=== PATIENT | female | born 1995 | race Hispanic/Latino ===

== ENCOUNTER 2017-02-26 08:37 | Observation (INO) | payer BC, OTHER ==
[2017-02-26 08:49] VITALS: BMI 25.1
[2017-02-26 08:50] VITALS: RESP 18
[2017-02-26 09:41] LABS: SQUAMOUS EPITHIAL 1 /hpf (0-5); URINE BILIRUBIN NEGATIVE (NEGATIVE); URINE BLOOD NEGATIVE (NEGATIVE); URINE CLARITY CLEAR (Clear); URINE COLOR YELLOW (YELLOW); URINE GLUCOSE (UA) NEG (Normal); URINE LEUKOCYTE ESTERASE TRACE Leu/uL (Negative); URINE NITRATE NEGATIVE (NEGATIVE); URINE PROTEIN NEGATIVE (NEGATIVE); URINE UROBILINOGEN 0.2-1.0 mg/dL (0.2-1.0)
--- NOTE | 2017-02-26 09:51 | ED PDOC ---
HPI: Back Chief Complaint (Provider): back pain History Per: Patient History/Exam Limitations: no limitations Onset/Duration Of Symptoms: Days (1) Current Symptoms Are (Timing): Still Present Quality Of Discomfort: Pressure, "Pain" (bilateral flank) Pain Scale Rating Of: 8 Associated Symptoms: None Exacerbating Factor(s): Movement Additional Complaint(s): 21 year old female presents complaining of 'flu like symptoms and back pain' that began last night. She endorses tactile fever, sore throat, chills and night sweats with associated back pressure/pain that is worsening. Back pain is 8/10 in severity and is non radiating. Pt denies dysuria, hematuria, pyuria. She notes these symptoms are the same, but milder than when she had pyelonephritis two years ago. She states last coitus was two days ago and was unprotected, however she is taking OCPs for contraception. She was also at the pool over the weekend. She denies sick contacts. PMH: ESBL+ pyelonephritis 2014, melanoma Medications: Junel Allergies NKDA Social : social EtOH use, denies tobacco, illicit drug use. Surgical hx: melanoma left leg removed PMD: none <Rosemarie Coello - Last Filed: 02/26/17 11:40> <Debbi Linares - Last Filed: 02/26/17 14:00> Time Seen by Provider: 02/26/17 09:12 Chief Complaint (Nursing): Back Pain Past Medical History Vital Signs: Last Vital Signs Temp 98.6 F 02/26/17 08:49 Pulse 97 H 02/26/17 08:49 Resp 18 02/26/17 08:49 BP 133/82 02/26/17 08:49 Pulse Ox 98 02/26/17 08:49 - Medical History PMH: No Chronic Diseases Denies: Alzheimer's Disease, Anemia, Anxiety, Arthritis, Asthma, Atrial Fibrillation, Bipolar Disorder, Bronchitis, CAD, Cardia Arrhythmia, CHF, COPD, Crohn's Disease, Dementia, Depression, Diverticulitis, Emphysema, Fractures, Gastritis, Gall Bladder Disease, HIV, HTN, Hypercholesterolemia, Hyperthyroidism , Hypothyroidism, Kidney Stones, Migraine, Mitral Valve Prolapse, Multiple Sclerosis, Osteoporosis, Pancreatitis, Paranoia, Parkinson's Disease, Peripheral Edema, Pneumonia, Post Traumatic Stress Disorder, Pulmonary Embolism , Rheumatoid Arthritis, Schizophrenia, Seizures, Sickle Cell Disease, Sexually Transmitted Disease, Sleep Apnea, TIA - Surgical History Surgical History: Denies: Appendectomy, CABG, Carotid Endarterectomy, Cholecystectomy, Coronary Stent, Pacemaker, Tonsillectomy - Family History Family History: States: Unknown Family Hx - Living Arrangements Living Arrangements: With Friends/Others - Social History Current smoker - smoking cessation education provided: No <Rosemarie Coello - Last Filed: 02/26/17 11:40> Vital Signs: Last Vital Signs Temp 98.6 F 02/26/17 08:49 Pulse 97 H 02/26/17 08:49 Resp 18 02/26/17 08:49 BP 133/82 02/26/17 08:49 Pulse Ox 98 02/26/17 11:41 - Medical History Other PMH: Pyelonephritis <Debbi Linares - Last Filed: 02/26/17 14:00> - Home Medications Home Medications: Ambulatory Orders Medication Instructions Recorded Lisdexamfetamine Dimesylate 40 mg PO DAILY 03/17/15 [Vyvanse] Norethindrone AC-Eth Estradiol 1 tab PO DAILY 03/17/15 [Junel 1 mg-20 Mcg Tablet] Ertapenem [Invanz] 1 gm IV DAILY #0 pds 03/26/15 Ibuprofen [Motrin Tab] 400 mg PO Q6 PRN #0 tab 03/26/15 Nitrofurantoin Macrocrystals 100 mg PO BID #14 cap 02/26/17 [Macrobid] - Allergies Allergies/Adverse Reactions: Allergies Allergy/AdvReac Type Severity Reaction Status Date / Time No Known Allergies Allergy Verified 02/17/15 12:15 Review of Systems Constitutional: Positive for: Fever, Chills, Sweats Eyes: Negative for: Vision Change ENT: Positive for: Throat Pain. Negative for: Ear Pain, Nose Discharge, Nose Congestion, Throat Swelling Cardiovascular: Negative for: Chest Pain, Palpitations Respiratory: Negative for: Cough, Shortness of Breath Gastrointestinal: Positive for: Nausea (this morning), Abdominal Pain (flank pain). Negative for: Vomiting, Diarrhea, Constipation Genitourinary Female: Negative for: Dysuria, Frequency, Hematuria Musculoskeletal: Positive for: Back Pain (flank pain) Skin: Negative for: Rash, Jaundice, Bruising Neurological: Negative for: Weakness, Numbness, Altered Mental Status <Rosemarie Coello - Last Filed: 02/26/17 11:40> ROS Statement: Except As Marked, All Systems Reviewed And Found Negative Gastrointestinal: Positive for: Other (right-sided flank pain) <Debbi Linares - Last Filed: 02/26/17 14:00> Physical Exam - Reviewed Vital Signs Reviewed: Yes (HR 97) - Physical Exam Appears: Positive for: Uncomfortable (secondary to pain but not in acute distress) Skin: Positive for: Warm, Dry. Negative for: Diaphoresis, Pallor Eye Exam: Positive for: Normal appearance ENT: Positive for: Pharyngeal Erythema (mild), Tonsillar Swelling (left tonsil 2 +, right tonsil not visualized). Negative for: Nasal Congestion, Tonsillar Exudate Neck: Positive for: Painless ROM Cardiovascular/Chest: Positive for: Regular Rate, Rhythm (S1S2). Negative for: Edema, Gallop, Murmur Respiratory: Positive for: Normal Breath Sounds. Negative for: Accessory Muscle Use, Rales, Rhonchi, Wheezing, Respiratory Distress Gastrointestinal/Abdominal: Positive for: Soft, Tenderness (right and left lumbar). Negative for: Organomegaly, Distended, Guarding, Rebound, Asicites Back: Positive for: Normal Inspection, L CVA Tenderness, R CVA Tenderness Rectal: Positive for: Deferred Extremity: Positive for: Normal ROM. Negative for: Tenderness, Pedal Edema Neurologic/Psych: Positive for: Alert, it assistant II-XII, Oriented, Mood/Affect ( appropriate) <Rosemarie Coello - Last Filed: 02/26/17 11:40> - Laboratory Results Result Diagrams: 02/26/17 10:13 02/26/17 10:13 Urine POC: Negative Urine dip results: Positive for: Leukocyte Esterase (trace). Negative for: Blood, Nitrate, Ketones, Glucose, Bilirubin, Protein - ECG O2 Sat by Pulse Oximetry: 98 - Progress ED Course And Treament: 21 year old female with likely post coital UTI, now with early acute pyelonephritis and likely viral URI -CBC -BMP -UA -Urine C&S -Urine test -Tylenol for pain -reassess Case d/w Dr. Linares, who agrees with the assessment and plan delineated above. 10:55: labs reviewed, patient reassessed CBC: leukocytosis- 15.2 BMP: hyperkalemia: 5.3, moderately hemolyzed UA: trace leukocyte esterase Pain not improved with tylenol. Father is bedside. Toradol 15mg IVP CT abd pelvis admit for observation. <ModeRosemarie - Last Filed: 02/26/17 11:40> - Laboratory Results Result Diagrams: 02/26/17 10:13 02/26/17 10:13 - ECG O2 Sat by Pulse Oximetry: 98 (RA) Pulse Ox Interpretation: Normal <Debbi Linares - Last Filed: 02/26/17 14:00> Medical Decision Making Medical Decision Making: Time: 09:05 Initial Impression: Initial Plan: --Patient to be admitted to ED-Observation for abdominal pain Scribe Attestation: Documented by Deneen Hewitt, acting as a scribe for Debbi Linares MD Provider Scribe Attestation: All medical record entries made by the Scribe were at my direction and personally dictated by me. I have reviewed the chart and agree that the record accurately reflects my personal performance of the history, physical exam, medical decision making, and the department course for this patient. I have also personally directed, reviewed, and agree with the discharge instructions and disposition. <Debbi Linares - Last Filed: 02/26/17 14:00> ED OBSERVATION Date of observation admission: 02/26/17 Time of observation admission: 09:05 - Observation admission statement Patient is being placed in observation because:: Abdominal pain - Goals of Observation Goals of observation are:: Determine cause and improve symptoms - Progress Note Progress Note: Time: 9:28 --Urinalysis --Blood work --Pending CT Abdomen/Pelvis Time: 12:24 CT Abdomen/Pelvis: FINDINGS: There is limited evaluation of the solid organs without the administration of IV contrast. LOWER THORAX: No visible consolidation, pleural effusion, or pneumothorax. LIVER: Unremarkable unenhanced appearance. GALLBLADDER AND BILE DUCTS: Unremarkable unenhanced appearance. PANCREAS: Unremarkable unenhanced appearance. SPLEEN: Unremarkable unenhanced appearance. ADRENALS: Unremarkable unenhanced appearance. KIDNEYS AND URETERS: No hydronephrosis or obstructing renal calculus. BLADDER: The urinary bladder appears unremarkable. REPRODUCTIVE: Uterus is present. APPENDIX: The appendix appears within normal limits of caliber. No secondary signs of acute appendicitis. BOWEL: The stomach is nondistended. Lack of oral contrast limits evaluation for bowel pathology. The bowel loops appear within normal limits of caliber without evidence of intestinal obstruction. Moderate constipation. PERITONEUM: No significant free fluid. No definite free air. LYMPH NODES: No bulky lymphadenopathy identified. VASCULATURE: No aortic aneurysm. BONES: Nonspecific osseous demineralization, sacrum. OTHER FINDINGS: None. IMPRESSION: Moderate constipation. Nonspecific osseous demineralization, sacrum. Time: 13:53 --Labs show small leukocytes present in urine --Macrobid 100 mg PO BID for 14 days --Patient aware of CT report --oxycodone 1 tab PO Clinical Impression: Constipation, UTI Upon provider evaluation patient is medically stable, and requires no further treatment in the ED at this time. Patient will be discharged with Rx for Macrobid. Counseling was provided and all questions were answered regarding diagnosis and need for follow up with PMD in 1-2 days. There is agreement to discharge plan. Return if symptoms persist or worsen. <Debbi Linares Y - Last Filed: 02/26/17 14:00> Disposition <Rosemarie Coello - Last Filed: 02/26/17 11:40> <Debbi Linares - Last Filed: 02/26/17 14:00> - Clinical Impression Clinical Impression: Constipation, UTI (urinary tract infection) - Disposition Condition: IMPROVED
[2017-02-26 10:18] LABS: BASO % 0.2 % (0.0-2.0); EOS % 0.1 % (0.0-4.0); HEMOGLOBIN 14.3 g/dL (12.0-16.0); LYMPH # 1.5 K/uL (1.0-4.3); LYMPH % 9.9 % (20.0-40.0); MEAN CORPUSCULAR HEMOGLOBIN 32.5 pg (27.0-31.0); MEAN CORPUSCULAR HGB CONC 34.2 g/dL (33.0-37.0); MEAN PLATELET VOLUME 9.4 fl (7.2-11.7); MONO % 6.3 % (0.0-10.0); NEUT # 12.7 K/uL (1.8-7.0); NEUT % 83.5 % (50.0-75.0); NRBC % 0.1 % (0.0-0.0); PLATELET COUNT 183 K/uL (130-400); RED CELL DISTRIBUTION WIDTH 13.1 % (11.5-14.5); WHITE BLOOD COUNT 15.2 K/uL (4.8-10.8)
[2017-02-26 10:34] LABS: BLOOD UREA NITROGEN 14 mg/dl (7-17); CALCIUM 9.4 mg/dL (8.4-10.2); GFR AFRICAN-AMERICAN > 60; GFR NON-AFRICAN AMERICAN > 60
[2017-02-26 11:41] LABS: LYMPHOCYTE 12 % (20-50); MONOCYTE 7 % (0-10); NEUTROPHIL 81 % (42-75); PLATELET ESTIMATE NORMAL (NORMAL); TOTAL CELLS COUNTED 100
--- NOTE | 2017-02-26 13:23 | CT ---
PROCEDURE: CT Abdomen and Pelvis without Oral or IV contrast. HISTORY: abd pain COMPARISON: Renal ultrasound performed 03/26/15, CT of the abdomen and pelvis with contrast performed 03/18/15 TECHNIQUE: Contiguous axial images of the abdomen and pelvis. No oral or IV contrast administered. Coronal and Sagittal reformats generated. Radiation dose: Total exam DLP = 833.89 mGy-cm. This CT exam was performed using one or more of the following dose reduction techniques: Automated exposure control, adjustment of the mA and/or kV according to patient size, and/or use of iterative reconstruction technique. FINDINGS: There is limited evaluation of the solid organs without the administration of IV contrast. LOWER THORAX: No visible consolidation, pleural effusion, or pneumothorax. LIVER: Unremarkable unenhanced appearance. GALLBLADDER AND BILE DUCTS: Unremarkable unenhanced appearance. PANCREAS: Unremarkable unenhanced appearance. SPLEEN: Unremarkable unenhanced appearance. ADRENALS: Unremarkable unenhanced appearance. KIDNEYS AND URETERS: No hydronephrosis or obstructing renal calculus. BLADDER: The urinary bladder appears unremarkable. REPRODUCTIVE: Uterus is present. APPENDIX: The appendix appears within normal limits of caliber. No secondary signs of acute appendicitis. BOWEL: The stomach is nondistended. Lack of oral contrast limits evaluation for bowel pathology. The bowel loops appear within normal limits of caliber without evidence of intestinal obstruction. Moderate constipation. PERITONEUM: No significant free fluid. No definite free air. LYMPH NODES: No bulky lymphadenopathy identified. VASCULATURE: No aortic aneurysm. BONES: Nonspecific osseous demineralization, sacrum. OTHER FINDINGS: None. IMPRESSION: Moderate constipation. Nonspecific osseous demineralization, sacrum.
[2017-02-26] MEDS ORDERED: Oxycodone/Acetaminophen 5/325 mg Tab PO ONE (13:53)
[2017-02-26 13:56] VITALS: BP 125/67; PULSE 70; TEMP 98.5
[2017-02-26 13:58] VITALS: O2SAT 98
[2017-02-26] MEDS ORDERED: cefTRIAXone (Rocephin) 1 gm Inj ONE (22:32)
== END 2017-02-26 13:38 | disposition home or self-care (01) ==
LOC: H.ER 08:37 → H.EROBSV 11:05
PROVIDERS: ADMIT Emergency Medicine; ATTEND Emergency Medicine
DX: K59.00 Constipation, unspecified (principal); N39.0 Urinary tract infection, site not specified; Z85.820 Personal history of malignant melanoma of skin
CPT/HCPCS: 74176; 80048; 81003; 81025; 85025; 87086; 96374; 99283; G0378; J1885

== ENCOUNTER 2017-03-13 19:49 | Inpatient (IN) | payer BC ==
[2017-03-13 19:49] VITALS: BMI 25.1
[2017-03-13] MEDS ORDERED: Morphine 4 MG/ML VIAL IVP ONE (20:50)
[2017-03-13] MEDS ORDERED: Sodium Chloride 0.9% 1,000 ML IV STA (20:51)
--- NOTE | 2017-03-13 20:51 | ED PDOC ---
HPI: Back Time Seen by Provider: 03/13/17 20:40 Chief Complaint (Nursing): Back Pain Chief Complaint (Provider): Back Pain History Per: Patient History/Exam Limitations: no limitations Onset/Duration Of Symptoms: Days Current Symptoms Are (Timing): Still Present Additional Complaint(s): Falguni Diaz is a 21 year old female with a history of pyelonephritis that presents to the ED with a chief complaint of pain in her right flank. Patient was admitted on 02/26/17 for pyelonephritis, and recently finished her antibiotics. Since the finishing of her antibiotics, patient states that she has noticed a return of pain in her right flank and fever. She denies any vomiting. Of Note: Patient also had history of admission in 2014 for pyelonephritis. Past Medical History Reviewed: Historical Data, Nursing Documentation, Vital Signs Vital Signs: Last Vital Signs Temp 100.1 F H 03/13/17 20:06 Pulse 109 H 03/13/17 20:06 Resp 18 03/13/17 20:06 BP 134/74 03/13/17 20:06 Pulse Ox 99 03/13/17 20:06 - Medical History PMH: Chronic Kidney Disease Denies: Alzheimer's Disease, Anemia, Anxiety, Arthritis, Asthma, Atrial Fibrillation, Bipolar Disorder, Bronchitis, CAD, Cardia Arrhythmia, CHF, COPD, Crohn's Disease, Dementia, Depression, Diverticulitis, Emphysema, Fractures, Gastritis, Gall Bladder Disease, HIV, HTN, Hypercholesterolemia, Hyperthyroidism , Hypothyroidism, Kidney Stones, Migraine, Mitral Valve Prolapse, Multiple Sclerosis, Osteoporosis, Pancreatitis, Paranoia, Parkinson's Disease, Peripheral Edema, Pneumonia, Post Traumatic Stress Disorder, Pulmonary Embolism , Rheumatoid Arthritis, Schizophrenia, Seizures, Sickle Cell Disease, Sexually Transmitted Disease, Sleep Apnea, TIA - Surgical History Surgical History: Denies: Appendectomy, CABG, Carotid Endarterectomy, Cholecystectomy, Coronary Stent, Pacemaker, Tonsillectomy - Family History Family History: States: Unknown Family Hx - Home Medications Home Medications: Ambulatory Orders Medication Instructions Recorded Nitrofurantoin Monohyd/M-Cryst 1 cap PO BID 02/26/17 [Nitrofurantoin [place]-Mcr 100 mg] Norethindrone AC-Eth Estradiol 1 tab PO DAILY 02/26/17 [Junel 1 mg-20 Mcg Tablet] - Allergies Allergies/Adverse Reactions: Allergies Allergy/AdvReac Type Severity Reaction Status Date / Time No Known Allergies Allergy Verified 02/17/15 12:15 Review of Systems Constitutional: Positive for: Fever Musculoskeletal: Positive for: Back Pain (right flank pain) Physical Exam - Reviewed Nursing Documentation Reviewed: Yes Vital Signs Reviewed: Yes - Physical Exam Appears: Positive for: Non-toxic. Negative for: No Acute Distress (Pain is in moderate painful distress) Head Exam: Positive for: ATRAUMATIC, NORMOCEPHALIC Skin: Positive for: Normal Color, Warm Cardiovascular/Chest: Positive for: Regular Rate, Rhythm. Negative for: Murmur Respiratory: Positive for: Normal Breath Sounds. Negative for: Wheezing Gastrointestinal/Abdominal: Positive for: Tenderness (epigastric and RUQ pain). Negative for: Normal Exam Back: Positive for: R CVA Tenderness. Negative for: Normal Inspection Neurologic/Psych: Positive for: Alert, Oriented. Negative for: Motor/Sensory Deficits - Laboratory Results Result Diagrams: 03/13/17 21:26 03/13/17 21:26 Urine POC: Negative Urine dip results: Positive for: Leukocyte Esterase. Negative for: Blood, Nitrate, Ketones, Glucose, Bilirubin, Protein - ECG O2 Sat by Pulse Oximetry: 99 (RA) Pulse Ox Interpretation: Normal - Progress ED Course And Treament: MORPHINE 4MG IV X 1 DOSE ZOFRAN 4 MG IV X 1 DOSE NS 1 LITER 500 ML PER HOUR BC X2 LACTATE WNL WBC 21 UDIP: POS LEUK/NEG NITRATE/NEG RBC ROCEPHIN 1 GM IV X 1 DOSE ORDERED Medical Decision Making Medical Decision Making: Impression: Possible Pyelonephritis Plan: * VBG * CMP * CBC * Urine Dip * Urine * Urinalysis * Urine Culture * Blood Culture * Morphine 4 mg IM * Zofran 4 mg IM * Sodium Chloride 1000 mL at 500 mLs/hr * US Abdomen * US Renal * Reevaluation Old charts reviewed, patient received CT Scan on 02/26/17 with finding of moderate constipation. Urine culture on 02/26/17 showed gram positive cocci <10, 000. Scribe Attestation: Documented by Emily Dave, acting as a scribe for Puja Kaur PA-C. Provider Scribe Attestation: All medical record entries made by the Scribe were at my direction and personally dictated by me. I have reviewed the chart and agree that the record accurately reflects my personal performance of the history, physical exam, medical decision making, and the department course for this patient. I have also personally directed, reviewed, and agree with the discharge instructions and disposition. ED OBSERVATION Date of observation admission: 03/13/17 Time of observation admission: 23:37 - Observation admission statement Patient is being placed in observation because:: ABDOMINAL PAIN - Goals of Observation Goals of observation are:: FEVER - Progress Note Progress Note: 03/13/17 23:38 PATIENT REQUIRED 2 DOSES OF MORPHINE 4 MG IV IN ED. Disposition - Clinical Impression Clinical Impression: Abdominal pain, Fever - Patient ED Disposition Is Patient to be Admitted: Transfer of Care - Disposition Disposition: Transfer of Care Disposition Time: 00:00 Condition: FAIR Patient Signed Over To: Gemini Shi Handoff Comments: ABDOMINAL CT PENDING - Pt Status Changed To: Hospital Disposition Of: Inpatient - Admit Certification Admit to Inpatient:: After my assessment, the patient will require hospitalization for at least two midnights. This is because of the severity of symptoms shown, intensity of services needed, and/or the medical risk in this patient being treated as an outpatient.
[2017-03-13] MEDS ORDERED: Morphine 4 MG/ML VIAL ONE ×2 (21:05→23:32)
[2017-03-13 21:30] LABS: BASO # 0.1 K/uL (0.0-0.2); BASO % 0.4 % (0.0-2.0); EOS # 0.3 K/uL (0.0-0.7); EOS % 1.6 % (0.0-4.0); HEMOGLOBIN 13.1 g/dL (12.0-16.0); LYMPH # 1.2 K/uL (1.0-4.3); LYMPH % 5.7 % (20.0-40.0); MEAN CELL VOLUME 95.6 fl (81.0-99.0); MEAN CORPUSCULAR HEMOGLOBIN 31.5 pg (27.0-31.0); MEAN CORPUSCULAR HGB CONC 32.9 g/dL (33.0-37.0); MEAN PLATELET VOLUME 8.9 fl (7.2-11.7); MONO # 0.7 K/uL (0.0-0.8); MONO % 3.4 % (0.0-10.0); NEUT % 88.9 % (50.0-75.0); PLATELET COUNT 194 K/uL (130-400); RBC 4.16 Mil/uL (3.80-5.20); RED CELL DISTRIBUTION WIDTH 13.3 % (11.5-14.5); WHITE BLOOD COUNT 21.4 K/uL (4.8-10.8)
[2017-03-13 21:33] LABS: VENOUS BLOOD GAS BASE EXCESS 0.8 mmol/L (0.0-2.0); VENOUS BLOOD GAS PCO2 39 mmHg (40-60); VENOUS BLOOD GAS PO2 21 mm/Hg (30-55); VENOUS BLOOD PH 7.42 (7.32-7.43)
[2017-03-13] MEDS ORDERED: cefTRIAXone (Rocephin) 1 gm Inj IVPB ONE (21:34)
[2017-03-13 21:42] LABS: ALB/GLOB RATIO 1.2 (1.0-2.1); ALBUMIN 4.2 g/dL (3.5-5.0); ALT/SGPT 34 U/L (9-52); AST/SGOT 23 U/L (14-36); BLOOD UREA NITROGEN 15 mg/dl (7-17); CALCIUM 9.5 mg/dL (8.4-10.2); GFR AFRICAN-AMERICAN > 60; GFR NON-AFRICAN AMERICAN > 60; LIPASE 115 U/L (23-300)
[2017-03-13 22:40] LABS: ANISOCYTOSIS SLIGHT; BANDS 3 % (0-2); EOSINOPHIL 1 % (0-7); HYPOCHROMIC SLIGHT; LYMPHOCYTE 6 % (20-50); MONOCYTE 3 % (0-10); NEUTROPHIL 87 % (42-75); PLATELET ESTIMATE NORMAL (NORMAL); TOTAL CELLS COUNTED 100
[2017-03-13 22:41] LABS: SQUAMOUS EPITHIAL 2 /hpf (0-5); URINE BILIRUBIN NEGATIVE (NEGATIVE); URINE BLOOD NEGATIVE (NEGATIVE); URINE CLARITY CLEAR (Clear); URINE COLOR STRAW (YELLOW); URINE GLUCOSE (UA) NEG (Normal); URINE LEUKOCYTE ESTERASE MOD Leu/uL (Negative); URINE NITRATE NEGATIVE (NEGATIVE); URINE PROTEIN NEGATIVE (NEGATIVE); URINE UROBILINOGEN 0.2-1.0 mg/dL (0.2-1.0)
[2017-03-13 22:41] LABS: STOMATOCYTES SLIGHT
[2017-03-13] MEDS ORDERED: Morphine 4 MG/ML VIAL IVP STA (23:02)
--- NOTE | 2017-03-13 23:32 | US ---
EXAM: US Abdomen Complete CLINICAL HISTORY: 21 years old, female; Pain; Abdominal pain; Epigastric; Additional info: Ruq abd pain TECHNIQUE: Real-time ultrasound of the abdomen (complete) with image documentation. COMPARISON: No relevant prior studies available. FINDINGS: Liver: Normal echogenicity. No mass. No intrahepatic bile duct dilatation. Gallbladder: No gallstones. No wall thickening. No pericholecystic fluid. No sonographic Quintanilla's sign. Common bile duct: No dilatation. No stones. Pancreas: Unremarkable as visualized. Kidneys: Normal echogenicity. No hydronephrosis. Spleen: No splenomegaly. Aorta: Unremarkable. No aneurysm. Inferior vena cava: Unremarkable. Free fluid: No significant free fluid. IMPRESSION: 1.No acute findings. 2.Non-acute findings are described above.
[2017-03-13] MEDS ORDERED: Iohexol 240 (50 ml) PO STA (23:33)
[2017-03-13] MEDS ORDERED: Iohexol 240 (50 ml) ONE (23:53)
[2017-03-14] MEDS ORDERED: Sodium Chloride 0.9% 50 ML IV ONE (02:06)
[2017-03-14] MEDS ORDERED: Iohexol 300 100 ML IJ ONE (02:06)
--- NOTE | 2017-03-14 02:44 | ED PDOC ---
"- Laboratory Results Result Diagrams: 03/13/17 21:26 03/13/17 21:26 Urine POC: Negative - ECG O2 Sat by Pulse Oximetry: 99 (RA) - Progress ED Course And Treament: ct: ABDOMEN: Liver: Unremarkable. No mass. Gallbladder and bile ducts: No calcified stones. No ductal dilation. Pancreas: No ductal dilation. No mass. Spleen: No splenomegaly. Adrenals: No mass. Kidneys and ureters: Mild scarring RIGHT kidney. Few minimal peripheral ill- defined areas of decreased attenuation vs scarring within RIGHT kidney. No hydronephrosis. Stomach and bowel: No definite mural thickening. No obstruction. Appendix: Normal caliber. No inflammation. PELVIS: Bladder: Unremarkable. Reproductive: Unremarkable as visualized. ABDOMEN and PELVIS: MICHELE BRIGHT | Final Radiology Report CONFIDENTIALITY STATEMENT This report is intended only for use by the referring physician, and only in accordance with law. If you received this in error, call [phone]. Page 2 of 2 Intraperitoneal space: Trace free fluid within pelvis. No free air. Bones/joints: No acute fracture. Soft tissues: Unremarkable. Vasculature: Unremarkable. No aneurysm. Lymph nodes: No pathologically enlarged lymph nodes. IMPRESSION: 1. Scarring of RIGHT kidney. Superimposed early pyelonephritis not entirely excluded. Correlate with urinalysis. 2. Incidental/non-acute findings are described above PT was given torodol for pain control Medical Decision Making Medical Decision Making: pt will admitted for pylonenphritis. Disposition - Clinical Impression Clinical Impression: Abdominal pain, Fever, Pyelonephritis - POA Present On Arrival: None - Disposition Disposition: Admitted as In-Patient Disposition Time: 03:02 Condition: FAIR Progress Note - Review of Symptoms General: No: Chills, Night Sweats, Fatigue, Malaise, Appetite, Other HEENT: No: Head Aches, Visual Changes, Eye Pain, Ear Pain, Dysphasia, Sinus Congestion, Post Nasal Drip, Sore Throat, Other Pulmonary: No: Dyspnea, Cough, Pleuritic Chest Pain, Other Cardiovascular: No: Chest Pain, Palpitations, Orthopnea, Paroxysmal Noc. Dyspnea , Edema, Light Headedness, Other Gastrointestinal: No: Nausea, Vomiting, Abdominal Pain, Diarrhea, Constipation, Melena, Hematochezia, Other Genitourinary: No: Dysuria, Frequency, Incontinence, Hematuria, Retention, Other Musculoskeletal: No: Muscle Pain, Joint Pain, Other Neurological: No: Weakness, Numbness, Incoordination, Change in speech, Confusion, Seizures, Other"
--- NOTE | 2017-03-14 02:48 | CT ---
EXAM: CT Abdomen and Pelvis With Intravenous Contrast CLINICAL HISTORY: 21 years old, female; Pain; Abdominal pain; Flank; Right; Additional info: Right sided abd pain and fever TECHNIQUE: Axial computed tomography images of the abdomen and pelvis with intravenous contrast. This CT exam was performed using one or more of the following dose reduction techniques: automated exposure control, adjustment of the mA and/or kV according to patient size, and/or use of iterative reconstruction technique. Coronal and sagittal reformatted images were created and reviewed. CONTRAST: 95 mL of [id number] administered intravenously. COMPARISON: CT - ABD PELVIS W/O PO OR IV CONT 02/26/2017 11:53:33 AM FINDINGS: Lower thorax: Minimal atelectasis/scarring. ABDOMEN: Liver: Unremarkable. No mass. Gallbladder and bile ducts: No calcified stones. No ductal dilation. Pancreas: No ductal dilation. No mass. Spleen: No splenomegaly. Adrenals: No mass. Kidneys and ureters: Mild scarring RIGHT kidney. Few minimal peripheral ill-defined areas of decreased attenuation vs scarring within RIGHT kidney. No hydronephrosis. Stomach and bowel: No definite mural thickening. No obstruction. Appendix: Normal caliber. No inflammation. PELVIS: Bladder: Unremarkable. Reproductive: Unremarkable as visualized. ABDOMEN and PELVIS: Intraperitoneal space: Trace free fluid within pelvis. No free air. Bones/joints: No acute fracture. Soft tissues: Unremarkable. Vasculature: Unremarkable. No aneurysm. Lymph nodes: No pathologically enlarged lymph nodes. IMPRESSION: 1. Scarring of RIGHT kidney. Superimposed early pyelonephritis not entirely excluded. Correlate with urinalysis. 2. Incidental/non-acute findings are described above.
[2017-03-14] MEDS: Dextrose 5%/0.45% NS 1,000 ML IV SCH ×2 (06:07→16:13)
[2017-03-14] MEDS: Morphine 4 MG/ML VIAL IVP PRN ×2 (06:08→11:32)
[2017-03-14 08:34] LABS: HEMOGLOBIN 11.6 g/dL (12.0-16.0); MEAN CELL VOLUME 95.5 fl (81.0-99.0); MEAN CORPUSCULAR HEMOGLOBIN 32.6 pg (27.0-31.0); MEAN CORPUSCULAR HGB CONC 34.1 g/dL (33.0-37.0); RBC 3.55 Mil/uL (3.80-5.20); RED CELL DISTRIBUTION WIDTH 12.6 % (11.5-14.5); WHITE BLOOD COUNT 13.6 K/uL (4.8-10.8)
--- NOTE | 2017-03-14 08:38 | RAD ---
HISTORY: fever/right side pain COMPARISON: No prior. TECHNIQUE: Chest PA and lateral FINDINGS: LUNGS: No active pulmonary disease. PLEURA: No significant pleural effusion identified. No pneumothorax apparent. CARDIOVASCULAR: Normal. OSSEOUS STRUCTURES: No significant abnormalities. VISUALIZED UPPER ABDOMEN: Normal. OTHER FINDINGS: None. IMPRESSION: No active disease.
[2017-03-14 08:43] LABS: BLOOD UREA NITROGEN 8 mg/dl (7-17); CALCIUM 8.7 mg/dL (8.4-10.2); GFR AFRICAN-AMERICAN > 60; GFR NON-AFRICAN AMERICAN > 60
[2017-03-14] MEDS ORDERED: NORETHINDRONE AC ETH ESTRADIOL PO SCH (09:00)
--- NOTE | 2017-03-14 14:58 | HP ---
HISTORY OF PRESENT ILLNESS: Ms. Diaz is a 21-year-old female who was admitted via the emergency room because of complaints of right flank pain for the past several days prior to presentation. She was last admitted to [facility] on 02/26/2017 for treatment of acute pyelonephritis and she just completed IV antibiotics and pain started again. She denies nausea, vomiting, diarrhea. She also denies dysuria, but has had right flank pain. PAST MEDICAL HISTORY: Remarkable for chronic kidney disease including sepsis several years ago for which she was admitted to the intensive care unit. She has had multiple bouts of pyelonephritis requiring IV antibiotics and PICC line in the past. FAMILY HISTORY: Unrevealing. SOCIAL HISTORY: She does not drink or smoke. REVIEW OF SYSTEMS: Essentially remarkable for recurrent urinary tract infection. PHYSICAL EXAMINATION GENERAL: The patient is alert and oriented, appears to be in moderate distress because of pain. VITAL SIGNS: Remarkable for blood pressure of 102/59, pulse of 66, respiratory rate is 18 per minute, she is afebrile with temperature of 98.6 degree Fahrenheit, O2 sat 97% on room air. SKIN: Fair turgor. HEENT: Pupils equal, reactive to light and accommodation. Mouth shows fair hygiene. JVP is flat. LUNGS: Clear. HEART: Regular, no murmurs or gallops. BREASTS: Normal. ABDOMEN: Soft with right flank tenderness on deep palpation. No organomegaly appreciated. EXTREMITIES: Shows no edema or cyanosis. GENITAL AND RECTAL: Deferred. LABORATORY DATA: Remarkable for WBC of 21.4, hemoglobin 13.1, and platelet count of 194,000. Sodium 135, potassium 4.3, BUN 15, creatinine 0.9. Urinalysis remarkable for moderate leukocyte esterase, RBC 1, WBC 4. CT scan of the abdomen and pelvis is remarkable for scarring of right kidney superimposed on early pyelonephritis. Chest x-ray, no acute cardiopulmonary pathology. IMPRESSION: Acute pyelonephritis, leukocytosis secondary to pyelonephritis. PLAN: Urology evaluation, Infectious Disease evaluation and pain, IV antibiotics, IV hydration. We will continue . Damian Garay MD
[2017-03-14] MEDS: Oxycodone/Acetaminophen 5/325 mg Tab PO PRN ×2 (17:25→21:58)
--- NOTE | 2017-03-14 18:57 | US ---
PROCEDURE: Ultrasound of the Kidneys HISTORY: R/O HYDRONEPHROSIS/PYELONEPHRITIS COMPARISON: None available. TECHNIQUE: Sonogram of the kidneys. FINDINGS: RIGHT KIDNEY: Measures: 9.7 x 3.9 x 5.1 cm. No obstructing calculus, hydronephrosis, or renal cyst identified LEFT KIDNEY: Measures: 10.7 x 4.7 x 5.9 cm. No obstructing calculus, hydronephrosis, or renal cyst identified. OTHER FINDINGS: None. IMPRESSION: Unremarkable renal sonogram as above. Please note that pyelonephritis cannot be excluded on the basis of sonography alone.
[2017-03-15] MEDS: Meropenem 1 GM in Sodium Chloride 0.9% 100 ML IVPB SCH ×3 (00:52→17:47)
--- NOTE | 2017-03-15 01:59 | CON ---
DATE: 03/14/2017 HISTORY OF PRESENT ILLNESS: The patient is a 21-year-old female who was admitted by the emergency room because of complaints of right flank pain for the past few days. She also complained of fever and chills. The patient was admitted two years prior to this admission twice; once in February and a followup in March and was found at that time to have a right renal abscess, which grew E. coli, ESBL and was treated for an extended period with meropenem in the hospital and ertapenem while at home. She gives no history in the past, 2 years of any renal issues. The patient has a history of chronic renal disease and as noted with the admissions that she had 2 years ago. PHYSICAL EXAMINATION: GENERAL: The patient is a pleasant, young female, alert, cooperative, and oriented to time and place. HEENT: Within normal limits. NECK: Supple. LUNGS: Clear. HEART: Regular sinus rhythm. ABDOMEN: Soft with right flank tenderness on the right lower quadrant on palpation and right upper quadrant on palpation. RECTAL: Exam was not done. LABORATORY DATA: Labs show a WBC of 21.4 on the first day of admission which is today down to 13.6. She had 88 polys and 3 bands. Her creatinine is 0.7 and a GFR is greater than 60. CT of the abdomen shows that the right kidney has scarring of the right kidney, probably a reflection of the previous abscess and pyelonephritis and possibly early pyelonephritis. For the present time, we will treat her with meropenem 1 g IV piggyback q. 8 h for the possibility of a repeat E. coli and ESBL. We will continue the Rocephin until cultures come back. I have also ordered followup urine analysis. José Ga MD
[2017-03-15] MEDS: Dextrose 5%/0.45% NS 1,000 ML IV SCH (04:14)
--- NOTE | 2017-03-15 08:34 | CP.PCM.PN ---
Subjective - Date & Time of Evaluation Date of Evaluation: 03/15/17 Time of Evaluation: 08:34 - Subjective Subjective: STILL HAS FLANK PAIN BUT LESS Objective - Vital Signs/Intake and Output Vital Signs (last 24 hours): Temp Pulse Resp BP Pulse Ox 97.7 F 55 L 18 100/61 98 03/15/17 08:10 03/15/17 08:10 03/15/17 08:10 03/15/17 08:10 03/15/17 08:10 - Medications Medications: Current Medications Acetaminophen (Tylenol 325mg Tab) 650 mg PO Q4 PRN PRN Reason: fever temp 100 and up Home Med (Norethindrone Ac-Eth Estradiol [Junel 1 Mg-20 Mcg Tablet]) 1 tab PO DAILY [facility] Ceftriaxone Sodium 1 gm/ (Sodium Chloride) 100 mls @ 100 mls/hr IVPB DAILY [facility] Last Admin: 03/14/17 08:08 Dose: 100 mls/hr Meropenem 1 gm/ Sodium (Chloride) 100 mls @ 100 mls/hr IVPB Q8 [facility] Last Admin: 03/15/17 00:52 Dose: 100 mls/hr Morphine Sulfate (Morphine) 2 mg IVP Q4 PRN PRN Reason: Pain, severe (8-10) Last Admin: 03/14/17 11:32 Dose: 2 mg Oxycodone/Acetaminophen (Percocet 5/325 Mg Tab) 1 tab PO Q4 PRN PRN Reason: Pain, moderate (4-7) Stop: 03/17/17 05:39 Last Admin: 03/14/17 21:58 Dose: 1 tab - Constitutional Appears: No Acute Distress - Head Exam Head Exam: ATRAUMATIC, NORMAL INSPECTION, NORMOCEPHALIC - Eye Exam Eye Exam: EOMI, Normal appearance, PERRL Pupil Exam: NORMAL ACCOMODATION, PERRL - ENT Exam ENT Exam: Mucous Membranes Moist, Normal Exam - Neck Exam Neck Exam: Full ROM, Normal Inspection. absent: Lymphadenopathy - Respiratory Exam Respiratory Exam: Clear to Ausculation Bilateral, NORMAL BREATHING PATTERN - Cardiovascular Exam Cardiovascular Exam: REGULAR RHYTHM, +S1, +S2. absent: Murmur - GI/Abdominal Exam GI & Abdominal Exam: Soft, Tenderness, Normal Bowel Sounds - Rectal Exam Rectal Exam: NORMAL INSPECTION - Extremities Exam Extremities Exam: Full ROM, Normal Capillary Refill, Normal Inspection. absent : Joint Swelling, Pedal Edema - Back Exam Back Exam: NORMAL INSPECTION - Neurological Exam Neurological Exam: Alert, Awake, CN II-XII Intact, Normal Gait, Oriented x3 - Psychiatric Exam Psychiatric exam: Normal Affect, Normal Mood - Skin Skin Exam: Dry, Intact, Normal Color, Warm Assessment and Plan - Assessment and Plan (Free Text) Assessment: ACUTE PYELONEPHRITIS--RECURRENT Plan: CONTINUE IV ANTIBIOTICS AWAIT UROLOGY EVAL
[2017-03-15 09:24] LABS: SQUAMOUS EPITHIAL 49 /hpf (0-5); URINE BACTERIA OCC (<OCC); URINE BILIRUBIN NEGATIVE (NEGATIVE); URINE BLOOD NEGATIVE (NEGATIVE); URINE CLARITY TURBID (Clear); URINE COLOR YELLOW (YELLOW); URINE GLUCOSE (UA) NEG (Normal); URINE LEUKOCYTE ESTERASE LARGE Leu/uL (Negative); URINE NITRATE NEGATIVE (NEGATIVE); URINE PROTEIN 30 mg/dL (NEGATIVE); URINE UROBILINOGEN 0.2-1.0 mg/dL (0.2-1.0)
[2017-03-15] MEDS: Oxycodone/Acetaminophen 5/325 mg Tab PO PRN ×2 (09:50→20:12)
--- NOTE | 2017-03-15 23:51 | CON ---
DATE: 03/15/2017 COMPREHENSIVE UROLOGIC CONSULTATION TIME OF CONSULTATION: Roughly 12:12 p.m. REASON FOR CONSULTATION: Recurrent pyelonephritis in the right kidney. HISTORY OF PRESENT ILLNESS: The patient is a 21-year-old white female with a history of current episodes of acute pyelonephritis and history of ureteral reflux as a child. The patient was previously seen by Dr. Samantha Guerrero at [facility] and performed a cystourethrogram on 02/22/2015, which showed no evidence of any reflux. The patient, however, was not available to void for a voiding cystourethrogram. The patient was treated with IV and oral antibiotics for one week and now readmitted for recurrence of acute right pyelonephritis. The patient had an abdomen and pelvic CT scan done on 03/13/2017, which shows no evidence of any hydronephrosis or obstructive uropathy. She did have some scaring of the right kidney and superimposed early pyelonephritis was not entirely excluded. Bladder was unremarkable. The patient now after receiving IV antibiotics is feeling relatively comfortable, again her renal colic mostly resolved at this time. PAST MEDICAL HISTORY: She has no other past medical history. SOCIAL HISTORY: She is nonsmoker and only a social drinker. PHYSICAL EXAMINATION: VITAL SIGNS: Her temperature today is 97.7. GENERAL: She is well-developed, well-nourished white female. She is alert. She is oriented. HEENT: Grossly within normal limits. NECK: Supple. Thyroid not palpable. ABDOMEN: Soft, nondistended. Not tender. No CVA tenderness. No suprapubic tenderness. ALLERGIES: SHE HAS NO KNOWN ALLERGIES TO ANY MEDICATIONS. LABORATORY DATA: Her laboratory evaluation on 03/14/2017, shows a WBC count of 13.6, hemoglobin of 11.6, hematocrit of 33.9 and a platelet count of 172,000. Her sodium is 136, potassium 3.7, chloride 107, CO2 was 22, BUN and creatinine were 8 and 0.7 respectively with the glucose of 98. The patient is on currently meropenem, IV antibiotics, and Rocephin 1 g daily. Her urine culture showed no growth on 03/13/2017 and her blood cultures also showed no growth on 03/13/2017. Her WBC count on admission was 21.4 on 03/13/2017, and on 03/14/2017, her WBC count was down to 13.6 on IV antibiotics. Urinalysis on 03/13/2017, just showed moderate leukocyte esterase with 1 rbc and 4 wbc's per high-power field. Her urinalysis today, 03/15/2017, is worse on IV antibiotics, where her leukocyte esterase is now large with 42 rbc's and 82 wbc's per high-power field with occasional bacteria and protein was 30, clarity was turbid, the color was yellow. DIAGNOSTIC IMPRESSION: Most likely acute right pyelonephritis. PLAN: To treat her with IV antibiotics followed by oral antibiotics for at least 2 weeks. The patient can be seen in office followup in about 2 weeks. Piotr Katz MD MTDD
[2017-03-16] MEDS: Meropenem 1 GM in Sodium Chloride 0.9% 100 ML IVPB SCH ×3 (00:54→16:13)
[2017-03-16] MEDS: Oxycodone/Acetaminophen 5/325 mg Tab PO PRN ×3 (10:44→22:57)
--- NOTE | 2017-03-16 12:51 | CP.PCM.PN ---
Subjective - Date & Time of Evaluation Date of Evaluation: 03/16/17 Time of Evaluation: 12:51 - Subjective Subjective: FEELS BETTER FLANK PAIN LESS AFEBRILE Objective - Vital Signs/Intake and Output Vital Signs (last 24 hours): Temp Pulse Resp BP Pulse Ox 98.1 F 59 L 18 111/68 97 03/16/17 08:12 03/16/17 08:12 03/16/17 08:12 03/16/17 08:12 03/16/17 08:12 - Medications Medications: Current Medications Acetaminophen (Tylenol 325mg Tab) 650 mg PO Q4 PRN PRN Reason: fever temp 100 and up Home Med (Norethindrone Ac-Eth Estradiol [Junel 1 Mg-20 Mcg Tablet]) 1 tab PO DAILY [facility] Ceftriaxone Sodium 1 gm/ (Sodium Chloride) 100 mls @ 100 mls/hr IVPB DAILY [facility] Last Admin: 03/16/17 10:45 Dose: 100 mls/hr Meropenem 1 gm/ Sodium (Chloride) 100 mls @ 100 mls/hr IVPB Q8 [facility] Last Admin: 03/16/17 08:42 Dose: 100 mls/hr Morphine Sulfate (Morphine) 2 mg IVP Q4 PRN PRN Reason: Pain, severe (8-10) Last Admin: 03/14/17 11:32 Dose: 2 mg Oxycodone/Acetaminophen (Percocet 5/325 Mg Tab) 1 tab PO Q4 PRN PRN Reason: Pain, moderate (4-7) Stop: 03/17/17 05:39 Last Admin: 03/16/17 10:44 Dose: 1 tab - Constitutional Appears: No Acute Distress - Head Exam Head Exam: ATRAUMATIC, NORMAL INSPECTION, NORMOCEPHALIC - Eye Exam Eye Exam: EOMI, Normal appearance, PERRL Pupil Exam: NORMAL ACCOMODATION, PERRL - ENT Exam ENT Exam: Mucous Membranes Moist, Normal Exam - Neck Exam Neck Exam: Full ROM, Normal Inspection. absent: Lymphadenopathy - Respiratory Exam Respiratory Exam: Clear to Ausculation Bilateral, NORMAL BREATHING PATTERN - Cardiovascular Exam Cardiovascular Exam: REGULAR RHYTHM, +S1, +S2. absent: Murmur - GI/Abdominal Exam GI & Abdominal Exam: Soft, Normal Bowel Sounds. absent: Tenderness - Rectal Exam Rectal Exam: NORMAL INSPECTION - Extremities Exam Extremities Exam: Full ROM, Normal Capillary Refill, Normal Inspection. absent : Joint Swelling, Pedal Edema - Back Exam Back Exam: NORMAL INSPECTION - Neurological Exam Neurological Exam: Alert, Awake, CN II-XII Intact, Normal Gait, Oriented x3 - Psychiatric Exam Psychiatric exam: Normal Affect, Normal Mood - Skin Skin Exam: Dry, Intact, Normal Color, Warm Assessment and Plan - Assessment and Plan (Free Text) Assessment: ACUTE PYELONEPHRITIS Plan: CONTINUE IV ANTIBIOTICS D/C HOME IN AM IF URINE CULTURE IS NON-REVEALING CONTINUE ORAL ANTIBIOTICS X 2 MORE WEEKS
[2017-03-17 00:09] VITALS: O2SAT 98
[2017-03-17] MEDS: Meropenem 1 GM in Sodium Chloride 0.9% 100 ML IVPB SCH ×2 (00:45→08:48)
[2017-03-17 07:41] LABS: HEMOGLOBIN 12.4 g/dL (12.0-16.0); MEAN CELL VOLUME 95.5 fl (81.0-99.0); MEAN CORPUSCULAR HGB CONC 33.5 g/dL (33.0-37.0); RBC 3.87 Mil/uL (3.80-5.20); RED CELL DISTRIBUTION WIDTH 12.7 % (11.5-14.5); WHITE BLOOD COUNT 7.5 K/uL (4.8-10.8)
[2017-03-17 07:50] LABS: BLOOD UREA NITROGEN 8 mg/dl (7-17); CALCIUM 8.9 mg/dL (8.4-10.2); GFR AFRICAN-AMERICAN > 60; GFR NON-AFRICAN AMERICAN > 60
[2017-03-17 08:39] VITALS: BP 115/72; PULSE 55; RESP 20; TEMP 97.7
--- NOTE | 2017-03-17 09:58 | CP.PCM.DIS ---
Provider - Provider Date of Admission: 03/14/17 09:12 Attending physician: Damian Garay MD Time Spent in preparation of Discharge (in minutes): 35 Diagnosis - Discharge Diagnosis (1) Leukocytosis Status: Acute (2) Pyelonephritis Status: Acute Priority: High (3) Acute pyelonephritis Status: Acute (4) UTI (urinary tract infection) Status: Acute Hospital Course - Lab Results Lab Results: Most Recent Lab Values WBC 7.5 K/uL (4.8-10.8) 03/17/17 05:30 RBC 3.87 Mil/uL (3.80-5.20) 03/17/17 05:30 Hgb 12.4 g/dL (12.0-16.0) 03/17/17 05:30 Hct 36.9 % (34.0-47.0) 03/17/17 05:30 MCV 95.5 fl (81.0-99.0) 03/17/17 05:30 MCH 32.0 pg (27.0-31.0) H 03/17/17 05:30 MCHC 33.5 g/dL (33.0-37.0) 03/17/17 05:30 RDW 12.7 % (11.5-14.5) 03/17/17 05:30 Plt Count 206 K/uL (130-400) 03/17/17 05:30 MPV 8.9 fl (7.2-11.7) 03/13/17 21:26 Neut % (Auto) 88.9 % (50.0-75.0) H 03/13/17 21:26 Lymph % (Auto) 5.7 % (20.0-40.0) L 03/13/17 21:26 Callahan % (Auto) 3.4 % (0.0-10.0) 03/13/17 21:26 Eos % (Auto) 1.6 % (0.0-4.0) 03/13/17 21:26 Baso % (Auto) 0.4 % (0.0-2.0) 03/13/17 21:26 Neut # 19.0 K/uL (1.8-7.0) H 03/13/17 21:26 Lymph # 1.2 K/uL (1.0-4.3) 03/13/17 21:26 Callahan # 0.7 K/uL (0.0-0.8) 03/13/17 21:26 Eos # 0.3 K/uL (0.0-0.7) 03/13/17 21:26 Baso # 0.1 K/uL (0.0-0.2) 03/13/17 21:26 Neutrophils % (Manual) 87 % (42-75) H 03/13/17 21:26 Band Neutrophils % 3 % (0-2) H 03/13/17 21:26 Lymphocytes % (Manual) 6 % (20-50) L 03/13/17 21:26 Monocytes % (Manual) 3 % (0-10) 03/13/17 21:26 Eosinophils % (Manual) 1 % (0-7) 03/13/17 21:26 Platelet Estimate Normal (NORMAL) 03/13/17 21:26 Hypochromasia (manual) Slight 03/13/17 21:26 Anisocytosis (manual) Slight 03/13/17 21:26 Stomatocytes Slight 03/13/17 21:26 ESR 24 mm/hr (0-20) H 03/15/17 04:30 pO2 21 mm/Hg (30-55) L 03/13/17 21:30 VBG pH 7.42 (7.32-7.43) 03/13/17 21:30 VBG pCO2 39 mmHg (40-60) L 03/13/17 21:30 VBG HCO3 23.9 mmol/L 03/13/17 21:30 VBG Total CO2 26.5 mmol/L (22-28) 03/13/17 21:30 VBG O2 Sat (Calc) 53.3 % (40-65) 03/13/17 21:30 VBG Base Excess 0.8 mmol/L (0.0-2.0) 03/13/17 21:30 VBG Potassium 3.8 mmol/L (3.6-5.2) 03/13/17 21:30 Sodium 133.0 mmol/L (132-148) 03/13/17 21:30 Chloride 104.0 mmol/L (98-107) 03/13/17 21:30 Glucose 101 mg/dL (65-105) 03/13/17 21:30 Lactate 1.0 mmol/L (0.7-2.1) 03/13/17 21:30 FiO2 21.0 % 03/13/17 21:30 Sodium 138 mmol/l (132-148) 03/17/17 05:30 Potassium 4.1 MMOL/L (3.6-5.0) 03/17/17 05:30 Chloride 106 mmol/L (98-107) 03/17/17 05:30 Carbon Dioxide 27 mmol/L (22-30) 03/17/17 05:30 Anion Gap 9 (10-20) L 03/17/17 05:30 BUN 8 mg/dl (7-17) 03/17/17 05:30 Creatinine 0.8 mg/dL (0.7-1.2) 03/17/17 05:30 Est GFR ( Amer) > 60 03/17/17 05:30 Est GFR (Non-Af Amer) > 60 03/17/17 05:30 Random Glucose 87 mg/dL (65-105) 03/17/17 05:30 Calcium 8.9 mg/dL (8.4-10.2) 03/17/17 05:30 Total Bilirubin 0.7 mg/dl (0.2-1.3) 03/13/17 21:26 AST 23 U/L (14-36) 03/13/17 21:26 ALT 34 U/L (9-52) 03/13/17 21:26 Alkaline Phosphatase 58 U/L (38-126) 03/13/17 21:26 Total Protein 7.5 G/DL (6.3-8.2) 03/13/17 21:26 Albumin 4.2 g/dL (3.5-5.0) 03/13/17 21:26 Globulin 3.4 gm/dL (2.2-3.9) 03/13/17 21:26 Albumin/Globulin Ratio 1.2 (1.0-2.1) 03/13/17 21:26 Lipase 115 U/L (23-300) 03/13/17 21:26 Procalcitonin < 0.05 NG/ML (0.19-0.49) L 03/15/17 04:30 Venous Blood Potassium 3.8 mmol/L (3.6-5.2) 03/13/17 21:30 Urine Color Yellow (YELLOW) 03/15/17 08:58 Urine Clarity Turbid (Clear) 03/15/17 08:58 Urine pH 6.0 (5.0-8.0) 03/15/17 08:58 Ur Specific [place] 1.021 (1.003-1.030) 03/15/17 08:58 Urine Protein 30 mg/dL (NEGATIVE) 03/15/17 08:58 Urine Glucose (UA) Neg mg/dL (Normal) 03/15/17 08:58 Urine Ketones Negative mg/dL (NEGATIVE) 03/15/17 08:58 Urine Blood Negative (NEGATIVE) 03/15/17 08:58 Urine Nitrate Negative (NEGATIVE) 03/15/17 08:58 Urine Bilirubin Negative (NEGATIVE) 03/15/17 08:58 Urine Urobilinogen 0.2-1.0 mg/dL (0.2-1.0) 03/15/17 08:58 Ur Leukocyte Esterase Large Alyssa/uL (Negative) 03/15/17 08:58 Urine RBC (Auto) 42 /hpf (0-3) H 03/15/17 08:58 Urine Microscopic WBC 82 /hpf (0-5) H 03/15/17 08:58 Ur Squamous Epith Cells 49 /hpf (0-5) H 03/15/17 08:58 Urine Bacteria Occ (<OCC) H 03/15/17 08:58 Urine Yeast (Budding) Few /hpf (NEGATIVE) H 03/15/17 08:58 - Hospital Course Hospital Course: R FLANK PAIN IMPROVED NO NAUSEA OR VOMITING NO DYSURIA ALL CULTURES SO FAR NEGATIVE Discharge Exam - Head Exam Head Exam: ATRAUMATIC, NORMAL INSPECTION, NORMOCEPHALIC - Eye Exam Eye Exam: EOMI, Normal appearance, PERRL Pupil Exam: NORMAL ACCOMODATION, PERRL - GI/Abdominal Exam GI & Abdominal Exam: Normal Bowel Sounds - Rectal Exam Rectal Exam: NORMAL INSPECTION - Neurological Exam Neurological exam: Alert, CN II-XII Intact, Normal Gait, Oriented x3, Reflexes Normal - Psychiatric Exam Psychiatric exam: Normal Affect, Normal Mood - Skin Skin Exam: Dry, Intact, Normal Color, Warm Discharge Plan - Follow Up Plan Condition: FAIR Disposition: HOME/ ROUTINE Patient education suggested?: Yes Instructions: Acute Pyelonephritis (DC) Additional Instructions: DISCHARGE TODAY ON CIPRO 500 MG BID X [address] ROSARIO--UROLOGIST
[2017-03-17 11:10] LABS: SQUAMOUS EPITHIAL 10 /hpf (0-5); URINE BILIRUBIN NEGATIVE (NEGATIVE); URINE BLOOD NEGATIVE (NEGATIVE); URINE CLARITY SLIGHTY-CLOUDY (Clear); URINE COLOR YELLOW (YELLOW); URINE GLUCOSE (UA) NEG (Normal); URINE NITRATE NEGATIVE (NEGATIVE); URINE PROTEIN NEGATIVE (NEGATIVE); URINE UROBILINOGEN 0.2-1.0 mg/dL (0.2-1.0)
[2017-03-17 11:10] LABS: SQUAMOUS EPITHIAL 5 /hpf (0-5); URINE BILIRUBIN NEGATIVE (NEGATIVE); URINE CLARITY SLIGHTY-CLOUDY (Clear); URINE COLOR YELLOW (YELLOW); URINE GLUCOSE (UA) NEG (Normal); URINE NITRATE NEGATIVE (NEGATIVE); URINE PROTEIN NEGATIVE (NEGATIVE); URINE UROBILINOGEN 0.2-1.0 mg/dL (0.2-1.0)
[2017-03-17 11:14] LABS: URINE BLOOD TRACE (NEGATIVE); URINE LEUKOCYTE ESTERASE MOD Leu/uL (Negative)
[2017-03-17 11:14] LABS: URINE LEUKOCYTE ESTERASE TRACE Leu/uL (Negative)
== END 2017-03-17 11:34 | disposition home or self-care (01) | DRG 690 ==
LOC: H.ER 19:49 → H.ERHOLD 23:34 → H.MEDSURG1 03-14 03:35 → OBSVTOIN 03-14 09:12
PROVIDERS: ADMIT Internal Medicine Pulmonary Disease; ATTEND Internal Medicine Pulmonary Disease
DX: N10 Acute pyelonephritis (principal); N18.9 Chronic kidney disease, unspecified; N23 Unspecified renal colic